=== PATIENT | male | born 1940 | race Caucasian/White ===

== ENCOUNTER 2021-07-29 21:02 | Inpatient (IN) | payer MEDICARE ==
[~2021-07-29] VITALS: Ht 180.3 cm; Wt 98.9 kg
[~2021-07-29 21:02] MED LIST: AMOX TR-K CLV1 EAC4 PO
[2021-07-30 00:20] LABS: HEMOGLOBIN 13.2 gm/dl (14.0-17.5); RED BLOOD COUNT 4.3 M/UL (4.20-5.50); WHITE BLOOD COUNT 7.7 K/UL (4.5-11.0)
[2021-07-30] MEDS ORDERED: AMLODIPINE BESYL5 MG PO (08:24)
[2021-07-30] MEDS ORDERED: NORVASC5 MG PO (08:25)
[2021-07-30] MEDS ORDERED: HYDROCHLOROTH12.5 M1 PO (08:26)
[2021-07-30] MEDS ORDERED: MONTELUKAST SOD10 MG PO (08:27)
[2021-07-30] MEDS ORDERED: FLOMAX 0.4 MG0.4 MG PO (08:28)
[2021-07-30] MEDS ORDERED: ALTACE10 MG PO (08:30)
[2021-07-30] MEDS ORDERED: SIMVASTATIN20 MG PO (08:31)
[2021-07-30] MEDS ORDERED: METFORMIN HCL500 M2 PO (08:55)
[2021-07-30 15:36] LABS: HEMOGLOBIN 12.2 gm/dl (14.0-17.5); RED BLOOD COUNT 3.98 M/UL (4.20-5.50)
[2021-07-30 15:37] LABS: WHITE BLOOD COUNT 5.3 K/UL (4.5-11.0)
[2021-07-30 16:06] LABS: BUN/CREATININE RATIO 10 (0-10)
[2021-08-02 06:14] LABS: HEMOGLOBIN 11.9 gm/dl (14.0-17.5); RED BLOOD COUNT 3.91 M/UL (4.20-5.50); WHITE BLOOD COUNT 4.1 K/UL (4.5-11.0)
== END 2021-08-03 19:10 | disposition home or self-care (01) | DRG 699 ==
LOC: ER1 21:02 → MED SURG 4 07-30 03:39 → CDU 07-30 03:39 → MED SURG 4 07-30 06:21
PROVIDERS: Internal Medicine; Physician Assistant; ADMIT Internal Medicine
DX: T83.511A Infection and inflammatory reaction due to indwelling urethral catheter, initial encounter (principal); N30.00 Acute cystitis without hematuria; E87.1 Hypo-osmolality and hyponatremia; Z20.822 Contact with and (suspected) exposure to COVID-19; N17.9 Acute kidney failure, unspecified; E86.1 Hypovolemia; Y83.8 Other surgical procedures as the cause of abnormal reaction of the patient, or of later complication, without mention of misadventure at the time of the procedure; E11.9 Type 2 diabetes mellitus without complications; I10 Essential (primary) hypertension; R33.9 Retention of urine, unspecified; Z74.01 Bed confinement status; Z90.49 Acquired absence of other specified parts of digestive tract; Z83.3 Family history of diabetes mellitus; Z79.4 Long term (current) use of insulin; Z87.891 Personal history of nicotine dependence
CPT/HCPCS: 36415; 71045; 80048; 80053; 81001; 82962; 83605; 83735; 83880; 84100; 85025; 85027; 85610; 85652; 85730; 86140; 87040; 87086; 96374; 97110; 97116; 97161; 97166; 97530; 99285; J0696; J1650; J2405; J2543; J3475; J7030; J7050; Q9967